=== PATIENT | female | born 1955 | race Caucasian/White ===

== ENCOUNTER 2018-05-01 11:31 | Emergency (ER) | payer SELFPAY ==
[~2018-05-01 11:31] MED LIST: ALPR-434 PO; BACL-1 PO; DICL-195 PO; FLUO40CA76 PO; OXYC-865 PO; TRAZ50TA34 PO
[2018-05-01] MEDS ORDERED: AMOX-559 PO (11:37)
[2018-05-01] MEDS ORDERED: ALB6.7R INH (11:37)
--- NOTE | 2018-05-01 11:40 | ER Report ---
History and Physical Time Seen By MD: 11:38 HPI/ROS CHIEF COMPLAINT: short of breath HISTORY OF PRESENT ILLNESS: This is a 62 year old female. She was sent to the ER by Dr. Licea at the [facility]. She was concerned that the patient was having shortness of breath that was not improving with albuterol and Prednisone. She has COPD, but the patient was unaware of this. She does smoke. She is finished her prednisone and is on Augmentin right now. Concern for possible pneumonia. She is not feeling short of breath now. Denies fevers or chills. No chest pain. No problems with bowel or bladder. REVIEW OF SYSTEMS: As above. Allergies: Coded Allergies: No Known Drug Allergies (Unverified , 05/01/18) Home Meds Reported Medications Amoxicillin/Pot Clav 875-125 Mg Tab (AUGMENTIN 875-125 TABLET) 1 Each Tablet, 1 TAB PO Q12H, TAB 05/01/18 Albuterol Sulfate (PROVENTIL HFA) 6.7 Gm Inh, 2 PUFF INH Q4-6H, INH 05/01/18 Trazodone Hcl (TRAZODONE HCL) 50 Mg Tablet, 150-300 MG PO QHS 02/04/17 Fluoxetine Hcl (PROZAC) 40 Mg Capsule, 40 MG PO QDAY, CAPSULE 02/04/17 Reviewed Nurses Notes: Yes Hx Smoking: Yes Smoking Status: Current: Every Day Smoker Exposure to Second Hand Smoke?: Yes Hx Substance Use Disorder: No Hx Alcohol Use: Yes (when she was 15-16) Constitutional Vital Sign - Last 24 Hours 05/01/18 05/01/18 05/01/18 05/01/18 11:32 11:52 11:52 12:00 Temp 98.5 Pulse 75 71 79 Resp 16 18 18 B/P (MAP) 141/96 Pulse Ox 90 90 O2 Delivery Room Air Room Air 05/01/18 05/01/18 05/01/18 05/01/18 12:41 12:56 12:57 13:00 Pulse 83 Resp 34 B/P (MAP) 120/83 (95) 113/72 (86) Pulse Ox 94 O2 Flow Rate 1.0 05/01/18 05/01/18 05/01/18 05/01/18 13:01 13:06 13:11 13:16 Pulse 65 68 70 65 Resp 6 17 11 57 Pulse Ox 95 95 97 95 05/01/18 05/01/18 05/01/18 05/01/18 13:21 13:26 13:30 13:31 Pulse 63 68 67 Resp 7 11 10 B/P (MAP) 116/79 (91) Pulse Ox 94 94 94 05/01/18 05/01/18 05/01/18 13:36 13:41 14:04 Pulse 68 69 Resp 19 9 B/P (MAP) 92/79 (83) Pulse Ox 94 95 Physical Exam General Appearance: The patient is alert. No acute distress. Non-toxic in appearance. Eyes: Pupils are equal, round. No pallor, injection or icterus. ENT: Mucous membranes are moist. Normal oral mucosa. Posterior oropharynx is normal. Neck: Supple and non tender. Respiratory: Breathing easily and unlabored. Lungs are clear to auscultation, no wheezing or rales, but diminished sounds throughout. There are no retractions or accessory muscle use. Cardiovascular: Regular rate and rhythm. No murmurs, gallops or rubs. No edema. Gastrointestinal: Abdomen is soft and non tender. Nondistended. Normal active bowel sounds. Neurological: Alert and oriented x3. No focal neurologic deficits Skin: Warm and dry. Musculoskeletal: No tenderness of back or chest to palpation. DIFFERENTIAL DIAGNOSIS: After history and physical exam, differential diagnosis was considered for shortness of breath including but not limited to pulmonary infectious process, COPD, pulmonary embolus and congestive heart failure. Medical Decision Making Data Points Result Diagram: 05/01/18 1205 05/01/18 0000 Laboratory Hematology Test 05/01/18 00:00 05/01/18 12:05 Sodium Level 138 mmol/L (137-145) Potassium Level 4.1 mmol/L (3.5-5.0) Chloride Level 102 mmol/L (98-107) Carbon Dioxide Level 26 mmol/L (22-31) Blood Urea Nitrogen 19 mg/dl (7-18) Creatinine 0.80 mg/dl (0.52-1.04) Glomerular Filtration Rate Calc > 60.0 Random Glucose 85 mg/dl (75-110) Calcium Level 8.9 mg/dl (8.4-10.2) Total Bilirubin 0.4 mg/dl (0.2-1.3) Aspartate Amino Transf (AST/SGOT) 23 U/L (0-35) Alanine Aminotransferase (ALT/SGPT) 21 U/L (0-56) Alkaline Phosphatase 110 U/L (0-126) Troponin I < 0.012 ng/ml Total Protein 7.0 g/dl (6.3-8.2) Albumin 4.0 g/dl (3.5-5.0) Red Blood Count 5.55 M/uL (4.17-5.56) Mean Corpuscular Volume 88.7 fL (80.0-96.0) Mean Corpuscular Hemoglobin 30.8 pg (26.0-33.0) Mean Corpuscular Hemoglobin Concent 34.7 g/dL (32.0-36.0) Red Cell Distribution Width 13.8 % (11.5-14.5) Mean Platelet Volume 7.6 fL (7.2-11.1) Neutrophils (%) (Auto) 59.0 % (39.4-72.5) Lymphocytes (%) (Auto) 33.6 % (17.6-49.6) Monocytes (%) (Auto) 4.6 % (4.1-12.4) Eosinophils (%) (Auto) 1.8 % (0.4-6.7) Basophils (%) (Auto) 1.0 % (0.3-1.4) Nucleated RBC Relative Count (auto) 0.0 /100WBC Neutrophils # (Auto) 10.0 K/uL (2.0-7.4) Lymphocytes # (Auto) 5.7 K/uL (1.3-3.6) Monocytes # (Auto) 0.8 K/uL (0.3-1.0) Eosinophils # (Auto) 0.3 K/uL (0.0-0.5) Basophils # (Auto) 0.2 K/uL (0.0-0.1) Nucleated RBC Absolute Count (auto) 0.00 K/uL Chemistry Test 05/01/18 00:00 05/01/18 12:05 Glomerular Filtration Rate Calc > 60.0 Calcium Level 8.9 mg/dl (8.4-10.2) Total Bilirubin 0.4 mg/dl (0.2-1.3) Aspartate Amino Transf (AST/SGOT) 23 U/L (0-35) Alanine Aminotransferase (ALT/SGPT) 21 U/L (0-56) Alkaline Phosphatase 110 U/L (0-126) Troponin I < 0.012 ng/ml Total Protein 7.0 g/dl (6.3-8.2) Albumin 4.0 g/dl (3.5-5.0) White Blood Count 17.0 k/uL (4.5-11.0) Red Blood Count 5.55 M/uL (4.17-5.56) Hemoglobin 17.1 g/dL (12.0-16.0) Hematocrit 49.2 % (34.0-47.0) Mean Corpuscular Volume 88.7 fL (80.0-96.0) Mean Corpuscular Hemoglobin 30.8 pg (26.0-33.0) Mean Corpuscular Hemoglobin Concent 34.7 g/dL (32.0-36.0) Red Cell Distribution Width 13.8 % (11.5-14.5) Platelet Count 322 K/uL (150-450) Mean Platelet Volume 7.6 fL (7.2-11.1) Neutrophils (%) (Auto) 59.0 % (39.4-72.5) Lymphocytes (%) (Auto) 33.6 % (17.6-49.6) Monocytes (%) (Auto) 4.6 % (4.1-12.4) Eosinophils (%) (Auto) 1.8 % (0.4-6.7) Basophils (%) (Auto) 1.0 % (0.3-1.4) Nucleated RBC Relative Count (auto) 0.0 /100WBC Neutrophils # (Auto) 10.0 K/uL (2.0-7.4) Lymphocytes # (Auto) 5.7 K/uL (1.3-3.6) Monocytes # (Auto) 0.8 K/uL (0.3-1.0) Eosinophils # (Auto) 0.3 K/uL (0.0-0.5) Basophils # (Auto) 0.2 K/uL (0.0-0.1) Nucleated RBC Absolute Count (auto) 0.00 K/uL EKG/Imaging EKG Interpretation 12 lead EKG: Rhythm: normal sinus rhythm, rate 77 Wideman: Left axis deviation QRS: normal ST segments: normal ST segments, nonspecific T-wave flattening Imaging 2 VIEWS CHEST INDICATION: Short of breath COMPARISON: None available FINDINGS: Heart size upper limits of normal. Minimal atherosclerotic calcifications of the aortic knob. Mild peribronchial thickening with no acute infiltrate or consolidation. There is no pneumothorax or pleural effusion. IMPRESSION: 1. No acute cardiopulmonary process. Report Dictated By: Se Morales MD at 05/01/2018 1:20 PM ED Course/Re-evaluation Clinical Indication for ER IV: IV Access ED Course Patient had no improvement with DuoNeb treatment. X-ray was normal. Labs unremarkable other than elevated white count. She is already on Augmentin and will continue this. Oxygen levels ran between 88% to 94% while on room air, She would desaturate a little bit when she would sleep. Decision to Disposition Date: May 01, 2018 Decision to Disposition Time: 14:05 Depart Departure Latest Vital Signs Vital Signs Date Time Temp Pulse Resp B/P (MAP) Pulse Ox O2 Delivery O2 Flow Rate FiO2 05/01/18 14:04 92/79 (83) 05/01/18 13:41 69 9 95 05/01/18 12:41 1.0 05/01/18 11:52 Room Air 05/01/18 11:32 98.5 Impression: Primary Impression: COPD (chronic obstructive pulmonary disease) with acute bronchitis Condition: Improved Disposition: HOME OR SELF-CARE Referrals: PRISCILLA MELARA DNP, MANAGER OF PROCUREMENT-BC (PCP) Patient Instructions: COPD (Chronic Obstructive Pulmonary Disease) (ED) Additional Instructions: Finish the antibiotic Dr. Licea prescribed. You can keep using the albuterol inhaler as well. Follow-up with Dr. Licea. You can return to the ER for further evaluation if you have worsening shortness of breath, chest pain, severe fevers/chills, or other difficulty breathing. MICHELLE JACKSON MD May 01, 2018 11:40
[2018-05-01] MEDS ORDERED: ALBUTEROL/IPRATROPIUM 3 ML NEB NEB ONE (11:45)
[2018-05-01 12:11] LABS: PLATELET COUNT, AUTOMATED 322 K/uL (150-450)
--- NOTE | 2018-05-01 12:14 | EKG ---
FACILITY: [facility] - [place] PATIENT NAME: ISHAAN BRAVO : [id number] MR: [id number] V: [id number] EXAM DATE: ORDERING PHYSICIAN: MICHELLE JACKSON TECHNOLOGIST: Test Reason : Blood Pressure : / mmHG Vent. Rate : 077 BPM Atrial Rate : 077 BPM P-R Int : 142 ms QRS Dur : 078 ms QT Int : 406 ms P-R-T Axes : 058 -34 035 degrees QTc Int : 459 ms Sinus rhythm Possible Left atrial enlargement Left axis deviation Abnormal ECG No previous ECGs available Confirmed by STEPHANIE FATIMA ([id number]) on 05/02/2018 5:38:15 AM Referred By: Confirmed By:STEPHANIE FATIMA
--- NOTE | 2018-05-01 13:47 | RADIOLOGY IMAGING REPORT ---
[place] [facility] [place] NAME[place] Keiry Phipps : 1955 MR: [id number] V: [id number] EXAM DATE: ORDERING PHYSICIAN: MICHELLE JACKSON TECHNOLOGIST: Location: [facility] [place] Patient: Keiry Phipps : 1955 Visit/Account:[id number] Date of Sevice: 05/01/2018 2 VIEWS CHEST INDICATION: Short of breath COMPARISON: None available FINDINGS: Heart size upper limits of normal. Minimal atherosclerotic calcifications of the aortic knob. Mild peribronchial thickening with no acute infiltrate or consolidation. There is no pneumothorax or pleural effusion. IMPRESSION: 1. No acute cardiopulmonary process. Report Dictated By: Se Morales MD at 05/01/2018 1:20 PM Report E-Signed By: Se Morales MD at 05/01/2018 1:44 PM WSN:[email or web address]
[2018-05-01 14:04] VITALS: BP 92/79
== END 2018-05-01 14:08 | disposition home or self-care (01) ==
LOC: ER 11:47
DX: J44.9 Chronic obstructive pulmonary disease, unspecified (principal); J20.9 Acute bronchitis, unspecified
CPT/HCPCS: 71046; 84484; 85025; 93005; 94640; 99284; J7620; 82040; 82247; 82310; 82374; 82435; 82565; 82947; 84075; 84132; 84155; 84295; 84450; 84460; 84520

== ENCOUNTER → 2018-12-04 | Outpatient (CLI) | payer SELFPAY ==
[~2018-12-04] MED LIST changes: +ALB6.7R INH; +AMOX-559 PO
--- NOTE | 2018-12-04 14:34 | RADIOLOGY IMAGING REPORT ---
FACILITY: [facility] PATIENT NAME: Keiry Phipps : 1955 MR: [id number] V: [id number] EXAM DATE: ORDERING PHYSICIAN: ODALYS COYLE TECHNOLOGIST: Location: [facility] Patient: Keiry Phipps : 1955 Visit/Account:[id number] Date of Sevice: 12/04/2018 Chest with lateral, two views. HISTORY: Hypoxemia, COPD. COMPARISON: 05/01/2018. The heart size is normal. The aortic knob is mildly calcified. Pulmonary vessels are normal. The l ungs are voluminous. Minimal blunting of the right lateral costophrenic sulcus is unchanged. The pl eural surfaces are otherwise unremarkable. No acute bony abnormalities. The abdominal aorta is calc ified. IMPRESSION: COPD. Aortic atherosclerosis. Report Dictated By: Bhanu May MD at 12/04/2018 2:29 PM Report E-Signed By: Bhanu May MD at 12/04/2018 2:30 PM WSN:[email or web address]
== END ==
LOC: RAD 14:05
PROVIDERS: ATTEND Nurse Practitioner Family
DX: J44.9 Chronic obstructive pulmonary disease, unspecified (principal); I70.0 Atherosclerosis of aorta
CPT/HCPCS: 71046

== ENCOUNTER → 2019-01-25 | Outpatient (CLI) | payer OTHER ==
[~2019-01-25] MED LIST changes: +OMEP-218 PO
--- NOTE | 2019-01-25 15:53 | EKG ---
FACILITY: [facility] PATIENT NAME: ISHAAN BRAVO : [id number] MR: [id number] V: [id number] EXAM DATE: ORDERING PHYSICIAN: SARAHY LAMAS TECHNOLOGIST: ERNESTINE Test Reason : PRE-OP CLEARANCE Blood Pressure : / mmHG Vent. Rate : 068 BPM Atrial Rate : 068 BPM P-R Int : 150 ms QRS Dur : 084 ms QT Int : 444 ms P-R-T Axes : 074 008 064 degrees QTc Int : 472 ms Sinus rhythm Possible biatrial enlargement Borderline left axis No acute appearing findings Confirmed by STEPHANIE FATIMA ([id number]) on 01/25/2019 5:01:44 PM Referred By: CYDNEY Confirmed By:STEPHANIE FATIMA
== END ==
LOC: RESP 14:30
PROVIDERS: ATTEND Surgery
DX: Z02.9 Encounter for administrative examinations, unspecified (principal)

== ENCOUNTER 2019-03-03 01:13 | Day surgery (SDC) | payer OTHER ==
[~2019-03-03] VITALS: Ht 160 cm; Wt 56.2 kg
[~2019-03-03 01:13] MED LIST changes: +FLUT1DIS27 IH; +TRAZ100T31 PO
[2019-03-03] MEDS ORDERED: GLYCOPYRROLATE 0.2MG/ML 1 ML INJ IVP ONE (06:40)
[2019-03-03 07:02] VITALS: BP 165/90
[2019-03-03 07:34] LABS: PLATELET COUNT, AUTOMATED 338 K/uL (150-450)
[2019-03-03] MEDS ORDERED: LIDOCAINE MPF 1% 5 ML VIAL ONE (07:35)
[2019-03-03] MEDS ORDERED: PROPOFOL EMUL(*) 10MG/ML 20 ML 40 ML ONE (07:35)
[2019-03-03] MEDS ORDERED: PROPOFOL EMUL(*) 10MG/ML 20 ML 20 ML ONE (07:39)
[2019-03-03] MEDS ORDERED: NORMOSOL R SOLN(*) 1000 ML BAG 1,000 ML IV PRN (08:35)
[2019-03-03] MEDS ORDERED: LIDOCAINE/SOD BICARB 8.4% SYR ID ONE (08:35)
[2019-03-03] MEDS ORDERED: LABETALOL HCL 25 MG/5 ML SYRINGE ONE (09:16)
[2019-03-03 09:27] VITALS: BP 114/77
[2019-03-03 09:30] VITALS: BP 112/78
--- NOTE | 2019-03-03 09:36 | Short(Outpt) Discharge Summary ---
Discharge Summary Reason for Hosp/Final Diag: (1) BRBPR (bright red blood per rectum) Status: Chronic Hospital Course & Plan: Colonoscopy with polypectomy x2 completed without problems. (2) Colon cancer screening Status: Chronic (3) GERD (gastroesophageal reflux disease) Status: Chronic Hospital Course & Plan: EGD completed without problems. Unremarkable. Departure Discharge to: Home, Self Care Discharge Instructions Home Meds Reported Medications Fluticasone/Salmeterol (ADVAIR 100-50 DISKUS) 1 Each Disk.w.dev, 1 PUFF IH DAILY 02/19/19 Trazodone Hcl (TRAZODONE HCL) 100 Mg Tablet, 100 MG PO HS, TAB 02/19/19 Fluoxetine Hcl (PROZAC) 40 Mg Capsule, 60 MG PO QDAY, CAPSULE 02/19/19 Omeprazole Magnesium (PRILOSEC OTC) 20 Mg Tablet.dr, 1 TAB PO QDAY, TAB 01/25/19 Albuterol Sulfate (PROVENTIL HFA) 6.7 Gm Inh, 2 PUFF INH Q4-6H, INH 05/01/18 Diet: Regular Activity: As Tolerated Special Instructions: Your upper endoscopy was completed without problems and was normal. Your colonoscopy was also completed without problems and your prep was excellent (Good Job!!). I removed 2 polyps from your colon and they were sent to pathology. These are not the cause of your bleeding. The bleeding is likely from hemorrhoids or a fissure but these weren't evident on today's exam although they can come and go. My office will call you in the next week or two to let you know what the polyps are but you'll likely need another colonoscopy in 5 years. Problem Qualifiers (1) GERD (gastroesophageal reflux disease): Esophagitis presence: without esophagitis Qualified Codes: K21.9 - Gastro- esophageal reflux disease without esophagitis SARAHY LAMAS MD March 03, 2019 09:36
[2019-03-03 09:45] VITALS: BP 111/96
[2019-03-03 09:55] VITALS: BP 113/88
[2019-03-03 09:59] VITALS: BP 110/80
== END 2019-03-03 10:25 | disposition home or self-care (01) ==
LOC: OR 01:13
PROVIDERS: ATTEND Surgery
DX: Z12.11 Encounter for screening for malignant neoplasm of colon (principal); D12.3 Benign neoplasm of transverse colon; K29.80 Duodenitis without bleeding; K44.9 Diaphragmatic hernia without obstruction or gangrene
CPT/HCPCS: 00813; 43235; 45385; 83516; 83690; 85025; 88305; J2001; J2704; J3490; 82040; 82247; 82310; 82374; 82435; 82565; 82947; 84075; 84132; 84155; 84295; 84450; 84460; 84520

== ENCOUNTER → 2019-03-08 | Outpatient (CLI) | payer OTHER ==
--- NOTE | 2019-03-08 09:24 | RADIOLOGY IMAGING REPORT ---
FACILITY: [facility] - [place] PATIENT NAME: Keiry Phipps : 1955 MR: [id number] V: [id number] EXAM DATE: ORDERING PHYSICIAN: SARAHY LAMAS TECHNOLOGIST: [facility] Patient: Keiry Phipps : 1955 Visit/Account:[id number] Date of Sevice: 03/08/2019 Limited abdominal ultrasound of the right upper quadrant Indication: Right upper quadrant pain after eating. Comparison: None available Findings Liver is normal in size, contour, and echotexture and measures 12.5 cm in length. There is normal hep atopedal portal venous flow. Gallbladder wall thickness is 2.5 mm with no evidence of shadowing stone or sludge within the gallbla dder lumen. Negative sonographic Watts's sign reported by the technologist. Gallbladder appears smal l and may be partly contracted. Common duct measures 2.3 mm in maximum diameter with no evidence of shadowing stone. Abdominal aorta and IVC are patent and unremarkable. The right kidney is normal in size, contour, and echotexture and measures 9.8 cm in length. Included portions of the pancreas are normal. IMPRESSION: 1. Partially contracted appearance of the gallbladder without stones, sludge or sonographic evidence of cholecystitis. Report Dictated By: Mark Beckford at 03/08/2019 9:16 AM Report E-Signed By: Mark Beckford at 03/08/2019 9:20 AM WSN:[id number]
== END ==
LOC: US 02:20
PROVIDERS: ATTEND Surgery
DX: K82.9 Disease of gallbladder, unspecified (principal)
CPT/HCPCS: 76705

== ENCOUNTER → 2019-03-24 | Outpatient (CLI) | payer SELFPAY ==
[~2019-03-24] MED LIST changes: +SINCALIDE 5 MCG VIAL INJ ONE; -TRAZ50TA34 PO; +TRAZ50TA52 PO; +WATER FOR INJ,STERILE 20 ML 0 ML ONE
--- NOTE | 2019-03-24 16:44 | RADIOLOGY IMAGING REPORT ---
FACILITY: [facility] PATIENT NAME: Keiry Phipps : 1955 MR: [id number] V: [id number] EXAM DATE: ORDERING PHYSICIAN: SARAHY LAMAS TECHNOLOGIST: Location: [facility] Patient: Keiry Phipps : 1955 Visit/Account:[id number] Date of Sevice: 03/24/2019 NM HIDA SCAN HISTORY: right upper quadrant pain TECHNIQUE: 6.3 mCi Tc99m Hepatolite was injected intravenously. Multiple sequential gamma camera kaitlin ges of the abdomen were obtained for 91 minutes. COMPARISON: Gallbladder ultrasound March 08, 2019 FINDINGS: Liver uptake and excretion: Unremarkable. Time to appearance: Bile ducts: 9 minutes. Gallbladder: 22 minutes. Duodenum: 10 minutes. Duodenal-gastric reflux / extravasation: None. Since very little isotope into the gallbladder which is only faintly seen CCK was not administered IMPRESSION: Gallbladder is visualized although very little isotope into the gallbladder with the counts to below to perform a gallbladder ejection fraction. This corresponds to the recent sonographic findings of a contracted gallbladder and is likely related to acute or chronic cholecystitis Report Dictated By: Maeve Sol MD at 03/24/2019 4:37 PM Report E-Signed By: Maeve Sol MD at 03/24/2019 4:39 PM ASHAN:MARGI
== END ==
LOC: NUC 00:49
PROVIDERS: ATTEND Surgery
DX: R93.2 Abnormal findings on diagnostic imaging of liver and biliary tract (principal)
CPT/HCPCS: 78226; A9537; J2805

== ENCOUNTER 2019-06-03 00:56 | Day surgery (SDC) | payer SELFPAY ==
[2019-06-03] VITALS (8 sets, daily range): BP systolic 122–168; BP diastolic 70–104
[~2019-06-03] VITALS: Ht 160 cm; Wt 56.2 kg
[~2019-06-03 00:56] MED LIST changes: -SINCALIDE 5 MCG VIAL INJ ONE; -WATER FOR INJ,STERILE 20 ML 0 ML ONE
[2019-06-03] MEDS ORDERED: PROPOFOL EMUL(*) 10MG/ML 20 ML 20 ML ONE (10:08)
[2019-06-03] MEDS ORDERED: LIDOCAINE MPF 1% 5 ML VIAL ONE (10:08)
[2019-06-03] MEDS ORDERED: METOCLOPRAMIDE 10 MG/2 ML SDV ONE (10:08)
[2019-06-03] MEDS ORDERED: DEXAMETHASONE SOD 4 MG/ML VIAL ONE (10:08)
[2019-06-03] MEDS ORDERED: ONDANSETRON 4 MG/2 ML VIAL ONE (10:08)
[2019-06-03] MEDS ORDERED: SUGAMMADEX SOD 200 MG/2 ML SDV ONE (10:08)
[2019-06-03] MEDS ORDERED: fentaNYL CITR 250 MCG/5 ML AMP ONE (10:16)
[2019-06-03] MEDS ORDERED: ROCURONIUM BR 10 MG/ML 5 ML SY 5 ML ONE (10:17)
[2019-06-03] MEDS ORDERED: MIDAZOLAM 2 MG/2 ML VIAL IVP PRN (12:05)
[2019-06-03] MEDS ORDERED: INDOCYANINE GREEN 25 MG VIAL IVP ONE (12:05)
[2019-06-03] MEDS ORDERED: ACETAMINOPHEN 500 MG TAB PO ONE (12:05)
[2019-06-03] MEDS ORDERED: NORMOSOL R SOLN(*) 1000 ML BAG 1,000 ML IV PRN (12:05)
[2019-06-03] MEDS ORDERED: FAMOTIDINE 20 MG TAB PO ONE (12:05)
[2019-06-03] MEDS ORDERED: LIDOCAINE/SOD BICARB 8.4% SYR ID ONE (12:05)
[2019-06-03] MEDS ORDERED: AMPICILLIN/SULBACT (*) 3 GM VL 3 GM in NS(*) 0.9% 100 ML MINI-BAG 100 ML IVPB ONE (12:05)
[2019-06-03] MEDS ORDERED: PREGABALIN 150 MG CAPSULE PO ONE (12:05)
[2019-06-03] MEDS ORDERED: ROPIVACAINE 0.5% 20 ML VIAL ONE (12:59)
[2019-06-03] MEDS ORDERED: DOCU-416 PO (14:42)
[2019-06-03] MEDS ORDERED: TRAM-420 PO (14:42)
--- NOTE | 2019-06-03 14:46 | Short(Outpt) Discharge Summary ---
Discharge Summary Reason for Hosp/Final Diag: (1) Chronic cholecystitis Status: Chronic Hospital Course & Plan: Robotic cholecystectomy completed without problems. Departure Discharge to: Home, Self Care Discharge Instructions Home Meds Active Scripts Docusate Sodium (COLACE) 100 Mg Capsule, 1 CAP PO BID, #30 CAP 0 Refills TAKE WITH A FULL GLASS OF WATER Prov:SARAHY LAMAS MD 06/03/19 Tramadol Hcl (TRAMADOL HCL) 50 Mg Tablet, 1 TAB PO Q4H PRN for PAIN, #20 TAB 0 Refills Prov:SARAHY LAMAS MD 06/03/19 Reported Medications Fluticasone/Salmeterol (ADVAIR 100-50 DISKUS) 1 Each Disk.w.dev, 1 PUFF IH DAILY 02/19/19 Trazodone Hcl (TRAZODONE HCL) 100 Mg Tablet, 100 MG PO HS, TAB 02/19/19 Fluoxetine Hcl (PROZAC) 40 Mg Capsule, 60 MG PO QDAY, CAPSULE 02/19/19 Omeprazole Magnesium (PRILOSEC OTC) 20 Mg Tablet.dr, 1 TAB PO QDAY PRN for HEARTBURN, TAB 01/25/19 Albuterol Sulfate (PROVENTIL HFA) 6.7 Gm Inh, 2 PUFF INH Q4-6H, INH 05/01/18 Follow up Referrals: General Surgery - 06/29/19 @ Surgery, General with SARAHY LAMAS MD You have a follow up appointment scheduled with Dr. Lamas on 06/29/19, at 4:15pm. Diet: Regular Activity: As Tolerated Special Instructions: You may remove the white surgical dressings on 06/05/19, then you can shower. After showering, leave the incisions open to air but leave the steristrips in place until they fall off on their own. Do not immerse the incisions for 2 weeks. SARAHY LAMAS MD Jun 03, 2019 14:46
--- NOTE | 2019-06-03 15:02 | Post Operative Progress Note ---
Post Operative Progress Note Date: Jun 03, 2019 Time: 14:42 Surgeon: Karo Dictation number: [id number] Anesthesia: GETA by Dr. Bianchi Pre-Op Diagnosis: Biliary dyskinesia with bililary colic Post-Op Diagnosis: MASHA Findings: C/W dx Procedure(s): Robotic cholecystectomy Specimen Removed:(May be N/A): GB and contents Complications: None Fluids: See anesthesia record Estimated Blood Loss: Minimal Date OP Note Dictated: Jun 03, 2019 Time OP Note Dictated: 14:45 SARAHY LAMAS MD Jun 03, 2019 15:02
[2019-06-03] MEDS ORDERED: fentaNYL CITR 100 MCG/2 ML AMP ONE (15:15)
--- NOTE | 2019-06-04 01:56 | OPERATIVE REPORT 1 ---
EVENT DATE: June 03, 2019 SURGEON: Henry Huddleston MD ANESTHESIOLOGIST: Henry Bianchi MD ANESTHESIA: General endotracheal anesthesia. PREOPERATIVE DIAGNOSIS Biliary dyskinesia with biliary colic. POSTOPERATIVE DIAGNOSIS Biliary dyskinesia with biliary colic. PROCEDURE PERFORMED Robotic cholecystectomy. COMPLICATIONS None. CONDITION Stable. BLOOD LOSS Minimal. INDICATIONS FOR PROCEDURE This is a 63-year-old female whom I have been evaluating for chronic GI symptoms, including postprandial right upper quadrant abdominal pain. Workup included a gallbladder ultrasound which was unremarkable, but a HIDA scan revealed that the gallbladder did not fill enough to even calculate an ejection fraction, and so a diagnosis was made of chronic cholecystitis. Incidentally, the ultrasound did show a partially contracted gallbladder, but there were not any stones or signs of wall thickening. In absence of finding any other cause of her symptoms, she was requesting to have her gallbladder removed and consented to a robotic cholecystectomy. DESCRIPTION OF PROCEDURE Patient was brought to the operating room and placed supine on the operating table. General endotracheal anesthesia was administered, and her abdomen was prepped and draped in a sterile fashion. A time-out was completed, and I injected the infraumbilical skin with 0.5% bupivacaine plain. I made a curvilinear smiley-face incision in the infraumbilical rim, dissected through the dermis and subcutaneous fat and identified the midline fascia. I made a vertical incision in the midline fascia and grasped the fascial edges with Marcia clamps and then bluntly entered the peritoneal cavity with my finger. I placed two interrupted 0 Vicryl sutures transversely through the vertical fascial defect and inserted a 12 mm robotic Deb-type port into this wound and secured it in place with suture. I insufflated the abdomen to a pressure of 15 mmHg. I then inserted the robotic camera in through this port. Next, under direct visualization, I placed an 8 mm robotic port in the right midabdomen and two 8 mm robotic ports in the left upper abdomen, one in the anterior axillary line subcostal space and one about penitentiary between the left upper quadrant and umbilical port, and then I had the patient placed in reverse Trendelenburg and planed toward her left to move the viscera from the right upper quadrant. I then brought in the robot, docked and targeted the robot, set up the instruments, and then scrubbed out and went to the console. I then grasped the fundus of the gallbladder and retracted it toward the patient's right shoulder, and grasped the infundibulum and retracted toward the patient's right hip. The gallbladder looked grossly fairly unremarkable. It was not contracted during this portion. I then divided the peritoneum over the infundibulum and up both the medial and lateral aspects of the gallbladder with the hook electrocautery, and then pulled this down and cleaned off the cystic duct and artery circumferentially. I used Firefly to identify the cystic duct and common bile duct and make sure I was well away from the common duct structures. I then clipped the artery proximally and distally and divided the artery between the clips, and then clipped the duct at the infundibulocystic duct junction, then three clips more distally on the duct, and then divided the duct between the two uppermost clips. I then divided the posterior attachments of the gallbladder to separate it from the gallbladder fossa, and then placed the gallbladder in a surgical specimen retrieval bag and removed it from the abdomen through the umbilical port site. I then removed all of the robotic instruments, undocked the robot, and moved the robot out of the way. I then scrubbed back in and inserted the camera into the patient's abdomen and inspected the gallbladder fossa as well as cystic duct and artery stumps. There was no bleeding or bile leaks. I then removed the instruments, desufflated the abdomen, removed all the ports, placed another 0 Vicryl [id number] suture between the first two 0 Vicryl sutures, and then tied all three of these down with good reapproximation of the fascial edges. I then closed the skin at each port site with 4-0 Monocryl subcuticular sutures. The skin was cleaned and dried and Steri-Strips were applied, followed by sterile surgical dressings. The patient was awakened and extubated in the operating room and transferred to the recovery room in stable condition, having tolerated the procedure without any apparent problems. MATHIEU
== END 2019-06-03 16:15 | disposition home or self-care (01) ==
LOC: OR 00:56
PROVIDERS: ATTEND Surgery
DX: K82.8 Other specified diseases of gallbladder (principal); K80.50 Calculus of bile duct without cholangitis or cholecystitis without obstruction
CPT/HCPCS: 47562; 88304; J0295; J1100; J2001; J2250; J2405; J2704; J2765; J2795; J3010; S2900